=== PATIENT | male | born 1975 | race Two or more races ===

== ENCOUNTER 2022-06-29 09:41 | Outpatient (REF) | payer MEDICAID, OTHER, SELFPAY ==
--- NOTE | ~2022-06-29 | XR_ITS ---
EXAMINATION: XR KNEE, RIGHT CLINICAL INFORMATION: Right knee pain. COMPARISON: None TECHNIQUE: Four views of the right knee. FINDINGS: Mild medial compartment joint space narrowing. Tiny patellofemoral and medial compartment marginal osteophytes. No osseous erosion. Superior and inferior patellar enthesophytes. Small joint effusion. XR/XR knee RT 4V IMPRESSION: Mild medial and patellofemoral compartment osteoarthritis and small joint effusion.
== END 2022-06-29 09:42 | disposition home or self-care (01) ==
LOC: HO.XRAY 09:41
PROVIDERS: Visit Provider Internal Medicine
DX: M25.561 Pain in right knee (principal)
CPT/HCPCS: 73564

== ENCOUNTER 2024-05-07 10:25 | Outpatient (REF) | payer MEDICAID, OTHER, SELFPAY ==
[2024-05-07 14:46] LABS: MANUAL DIFF FLAG NO
[2024-05-07 14:57] LABS: Basophils Percent Auto 0.3 % (0-2); Eosinophils Absolute Auto 0.1 X10*3/uL (0.0-0.4); Eosinophils Percent Auto 1.3 % (0-4); Hematocrit 40.7 % (42.0-52.0); Hemoglobin 13.4 g/dl (14.0-18.0); Imm Gran Abs Auto 0.03 X10*3/uL (0.00-0.03); Imm Gran Pct Auto 0.3 % (0.0-0.4); Lymphocytes Percent Auto 31.1 % (20-40); Mean Corpuscular HGB Conc 32.9 g/dl (31.0-36.0); Mean Corpuscular Volume 91.3 fL (80.0-98.0); Mean Platelet Volume 9.6 fL (9.4-12.4); Monocytes Absolute Auto 0.8 X10*3/uL (0.1-1.2); Monocytes Percent Auto 7.8 % (2-11); Neutrophils Absolute Auto 5.7 x10*3/uL (2.0-8.3); Neutrophils Percent Auto 59.2 % (45-73); Platelet Count 337 X10*3/uL (160-400); Red Blood Count 4.46 X10*6/uL (4.60-5.80); Red Cell Distribution Width 12.6 % (11.0-16.0); White Blood Count 9.6 X10*3/uL (4.8-10.8)
[2024-05-07 15:03] LABS: Estimated Average Glucose 114 mg/dL; Hemoglobin A1c % 5.6 % (<6.0)
[2024-05-07 15:23] LABS: Alanine Aminotransferase 29 U/L (0-40); Albumin Level 4.4 g/dL (3.5-5.0); Alkaline Phosphatase 65 U/L (39-117); Anion Gap 11 (12-20); Aspartate Amino Transferase 23 U/L (5-37); Bilirubin Total 0.6 mg/dL (0.0-1.0); Blood Urea Nitrogen 20 mg/dL (9-16); Calcium 9.5 mg/dL (8.4-10.2); Carbon Dioxide 23 mmol/L (22-29); Chloride 108 mmol/L (96-108); Cholesterol 164 mg/dL (<200); Estimated Glomerular Filt Rate > 60; Glucose Random 96 mg/dL (60-115); HDL Cholesterol 35 mg/dL (>40); LDL Cholesterol Calculated 110 mg/dL (<100); Sodium 138 mmol/L (135-145); Total Protein 7.4 g/dL (6.5-8.0); Triglycerides 99 mg/dL (<150)
[2024-05-07 15:27] LABS: Prostate Specific Antigen 1.96 ng/mL (<0.05-4.0)
[2024-05-07 15:41] LABS: TSH reflex Free T4 2.09 uIU/mL (0.32-4.0)
== END 2024-05-07 10:26 | disposition home or self-care (01) ==
LOC: HO.CHCLDS 10:25
PROVIDERS: Visit Provider Registered Nurse
DX: Z00.00 Encounter for general adult medical examination without abnormal findings (principal)
CPT/HCPCS: 36415; 80053; 80061; 83036; 84153; 84443; 85025

== ENCOUNTER → 2024-07-10 09:01 | Outpatient (BNV) | payer SELFPAY | PROVIDERS: PCP Family Medicine; Visit Provider Radiology Diagnostic Radiology | DX: M54.2 Cervicalgia (principal) | CPT/HCPCS: 72141 ==

== ENCOUNTER 2024-07-10 09:02 | Outpatient (REF) | payer MEDICAID, OTHER, SELFPAY ==
--- NOTE | ~2024-07-10 | MR_ITS ---
EXAMINATION: MR CERVICAL SPINE WITHOUT CONTRAST CLINICAL INFORMATION: 49-year-old male, sudden onset neck pain, radiating to right arm with numbness, as well as swelling bilateral lower neck to top of shoulders . COMPARISON: No relevant priors. TECHNIQUE: Multiplanar multisequence MR imaging of the cervical spine was done prior to and without the administration IV gadolinium. Examination was performed on a 1.5 Olena Siemens unit, using standard sequences. Please note, due to [facility] contractual, systems, and staffing issues, an [facility] radiologist was not available for review and dictation of this case until 07/29/2024. FINDINGS: CORONAL ALIGNMENT: -Normal. SAGITTAL ALIGNMENT: -There is a normal lordosis. Minimal straightening in the upper cervical region. -No subluxations. CRANIOCERVICAL JUNCTION/C1-2 ARTICULATIONS: -Intact and normally aligned. -Mild degenerative arthrosis C1-2 articulation. VERTEBRAL BODIES/BONE MARROW: -No compression deformities. -No gross bone marrow edema, or abnormal infiltrating bone marrow edema. DISCS: -Mild loss of disc height and signal spanning C2-C7, most significant at C5-C6, where there is moderate loss. CERVICAL CORD: -Normal in caliber and signal throughout. -No definite impingement identified. PARAVERTEBRAL SOFT TISSUES: -Normal. Normal flow voids in the vertebral arteries. -Thyroid is obscured by a saturation band. -On the coronal nutrition director view, mildly prominent bilateral supraclavicular fat is present, likely explaining patient's perceived swelling . VISUALIZED INTRACRANIAL STRUCTURES: -No abnormalities seen. AXIAL DISC SPACE IMAGING: C2-C3: Minimal disc bulge. Normal facets. No significant central canal or neural foraminal narrowing. C3-C4: No significant disc pathology. Minimal bilateral uncinate spurring. Normal facets. No central canal or neural foraminal narrowing. C4-C5: Broad-based shallow disc bulge present, extending into both foraminal zones and contiguous with mild bilateral uncinate spurs. Mild hypertrophic facet changes bilaterally left greater than right. Findings contribute to mild central canal stenosis without cord impingement or contact, mild right neural foraminal stenosis and moderate left neural foraminal narrowing. C5-C6: There is a broad-based disc bulge present with a superimposed central disc protrusion. The bulge extends into both foraminal zones and is contiguous with mild to moderate bilateral uncinate spurring. Findings indents upon the ventral thecal sac, contact, and minimally flatten the far lateral aspects of the anterior cord. There is a thin sliver of CSF remaining posterior to the cord. No abnormal cord signal. There is mild to moderate left greater than right lateral recess narrowing, and severe bilateral neural foraminal narrowing. C6-C7: There is a diffuse shallow disc bulge present extending into both foraminal zones with a superimposed central disc protrusion with annular fissuring. Minimal uncinate spurring, and minimal facet spurring. The bulge and protrusion contacts and minimally flatten the ventral aspect of the cord, with no abnormal cord signal, and a thin sliver of CSF remaining posterior to the cord. Mild impingement of the lateral columns bilaterally is present. Moderate lateral recess narrowing left greater than right. Moderate right greater than left neural foraminal narrowing. C7-T1: No central canal or neural foraminal narrowing. Mild facet degeneration bilaterally. T1-T4: No focal disc protrusions, bulges, or central canal or neural foraminal narrowing. MR/MR cervical spine wo con IMPRESSION: 1. Mild to moderate cervical spondylosis, most significant at C5-6 and C6-7 as detailed above. 2. See the body of the report for details and additional ancillary findings. Electronically signed by: Ralf Mcdonnell MD 07/29/2024 10:54 AM EDT
== END 2024-07-10 09:03 | disposition home or self-care (01) ==
LOC: HO.MRI 09:02
PROVIDERS: PCP Family Medicine; Visit Provider Family Medicine
DX: M54.2 Cervicalgia (principal)
CPT/HCPCS: 72141

== ENCOUNTER 2025-07-09 09:48 | Outpatient (REF) | payer SELFPAY ==
--- OUTSIDE RECORDS SUMMARY | 2025-06-25 14:45 | XMS_ITS | Encounter Summary ---
Author Organization [employer] Address [address] [place] [address] [address] [address] Care Team Providers Care Bridal Consultant Name Role Phone Jeanine Ashley Primary Care Provider [phone] Reason for Referral * Consultation (Routine) - Authorized Specialty Diagnoses / Procedures Referred By Rohan caro Referred To Contact Gastroenterology Diagnoses Colon cancer screening Jeanine Ashley FNP [address], [place] Phone: tel: fax: [facility] [address] [facility] [address] [place] [address] Phone: tel: fax: Referral ID Status Reason Start Date Expiration Date Visits Requested Visits Authorized [id number] Authorized Specialty Services Required 06/25/2025 06/25/2026 1 1 * Consultation (Routine) - Closed Specialty Diagnoses / Procedures Referred By Rohan caro Referred To Contact Optometry Diagnoses Difficulty seeing Jeanine Ashley FNP [address] [place] [address] Phone: tel: fax: [facility] [address] [place] [address] Phone: tel: fax: Referral ID Status Reason Start Date Expiration Date V isits Requested Visits Authorized [id number] Closed Consult and Treat 06/25/2025 06/25/2026 1 1 * Hospital - Outpatient (Routine) - Authorized Specialty Diagnoses / Procedures Referred By Rohan caro Referred To Contact Diagnoses Snoring Witnessed episode of apnea Procedures Polysomnography Jeanine Ashley FNP [address] [place] [address] Phone: tel: fax: [address] Phone: tel: fax: Referral ID Status Reason Start Date Expiration Date V isits Requested Visits Authorized [id number] Authorized 06/25/2025 06/25/2026 1 1 Encounter Details Date Type Department Care Team ([facility] st Contact Info) Description 06/25/2025 2:45 PM EDT Office Visit [facility] [address] [place] [address] Jeanine Ashley FNP [address] [place] [address] Encounter for routine history and physical examination of adult (Primary Dx); Routine health maintenance; Snoring; Witnessed episode of apnea; Difficulty seeing; Colon cancer screening; Cervical spondylosis; Dietary counseling; Exercise counseling Social History Tobacco Use Types Packs/Day Years Used Date Smoking Tobacco: Never Passive Smoke Exposure: Never Smokeless Tobacco: Never Tobacco Cessation:Counseling Given: Not Answered Alcohol Use Standard Drinks/Week Comments Never 0 (1 standard drink = 0.6 oz pur e alcohol) Depression Answer Date Recorded Patient Health Questionnaire-9 Score 3 07/01/2025 Patient Health Questionnaire-9 Score 3 07/01/2025 Last PHQ-9: Questionnaire Data Not on file 0 07/01/2025 Housing Stability Answer Date Recorded What is your housing situation today? I have nicholas murcia 06/25/[address] you li ve. Do you have problems with any of the following? None of the above 06/25/2025 Food Insecurity Answer Date Recorded Within the past 12 months, y ou worried that your food would run out before you got money to buy more: Never True 06/25/2025 Within the past 12 months,th e food you bought just didn't last and you didn't have enough money to get more: Never True Transportation Answer Date Recorded In the past 12 months, has l ack of transportation kept you from medical appts, meetings, work or from getting things needed for daily living? No 06/25/2025 Utilities Answer Date Recorded In the past 12 months, has t he electric, gas, oil or water company threatened to shut off services in your home? No 06/25/2025 Depression Answer Date Recorded Patient Health Questionnaire-2 Score 0 07/01/2025 Internet Access Answer Date Recorded Internet Access Q1 Yes 06/25/2025 Internet Access Q2 Not on file 06/25/2025 Sex and Gender Information Value Date Recorded Sex Assigned at Male 08/27/2022 10:40 AM EDT Legal Sex Male 10:40 AM EDT Gender Identity Male 08/27/2022 10:40 AM EDT Sexual Orientation Straight 06/29/2025 4: 19 PM EDT documented as of this encounter Last Filed Vital Signs Vital Sign Reading Time Taken Comments Blood Pressure 110/66 06/25/2025 2:46 PM EDT Pulse 80 06/25/2025 2:46 PM EDT Temperature 36.6 C (97.8 F) 06/25/2025 2:46 PM EDT Respiratory Rate 16 06/25/2025 2:46 PM EDT Oxygen Saturation - - Inhaled Oxygen Concentration - - Weight 75.3 kg (166 lb) 06/25/2025 2:46 PM EDT Height 157.5 cm (5' 2 ) 06/25/2025 2:46 PM EDT Body Mass Index 30.36 06/25/2025 2:46 PM EDT documented in this encounter Functional Status * Over the past 2 weeks, how often have you been bothered by any of the following problems? Question Answer Date of Assessment Author Patient Health Questionnaire -2 Score 0 07/01/2025 11:11 AM EDT Jeanine Ashley FNP * Little interest or pleasure in doing things Answer Date of Assessment Author Not at all 07/01/2025 11:11 AM EDT Jeanine Ashley FNP * Feeling down, depressed, or hopeless Answer Date of Assessment Author Not at all 07/01/2025 11:11 AM Jeanine Ramirez FNP * Trouble falling or staying asleep, or sleeping too much Answer Date of Assessment Author Not at all 07/01/2025 11:11 AM Jeanine Ramirez FNP * Feeling tired or having little energy Answer Date of Assessment Author Nearly every day 07/01/2025 11:11 AM Jeanine Ramirez FNP * Poor appetite or overeating Answer Date of Assessment Author Not at all 07/01/2025 11:11 AM Jeanine Ramirez FNP * Feeling bad about yourself - or that you are a failure or have let yourself or your family down Answer Date of Assessment Author Not at all 07/01/2025 11:11 AM Jeanine Ramirez FNP * Trouble concentrating on things, such as reading the newspaper or watching television Answer Date of Assessment Author Not at all 07/01/2025 11:11 AM Jeanine Ramirez FNP * Moving or speaking so slowly that other people could have noticed? Or the opposite - being so fidgety or restless that you have been moving around a lot more than usual. Answer Date of Assessment Author Not at all 07/01/2025 11:11 AM Jeanine Ramirez FNP * Thoughts that you would be better off or hurting yourself in some way Answer Date of Assessment Author Not at all 07/01/2025 11:11 AM Jeanine Ramirez FNP * Patient Health Questionnaire-9 Score Answer Date of Assessment Author 3 07/01/2025 11:11 AM Jeanine Ramirez FNP * How difficult have these problems made it for you to do your work, take care of things at home, or get along with other people? Answer Date of Assessment Author Not difficult at all 07/01/2025 11:11 AM Jeanine Casas FNP * Over the last 2 weeks, how often have you been bothered by any of the following problems? Question Answer Date of Assessment Author Feeling nervous, anxious, or on edge 1 07/01/2025 11:12 AM EDT Phalen, Jeanine, POSTAL SERVICE CLERK Not being able to stop or co ntrol worrying 0 07/01/2025 11:12 AM EDT Jeanine Ashley FNP Worrying too much about diff erent things 0 07/01/2025 11:12 AM EDT Jeanine Ashley FNP Trouble relaxing 1 07/01/2025 11:12 AM EDT Jeanine Ashley FNP Being so restless that it is hard to sit still 0 07/01/2025 11:12 AM EDT Jeanine Ashley FNP Becoming easily annoyed or irritable 1 07/01/2025 11:12 AM EDT Jeanine Ashley FNP Feeling afraid as if somethi ng awful might happen 0 07/01/2025 11:12 AM EDT Jeanine Ashley FNP SIENA-7 Total Score 3 07/01/2025 11:12 AM EDT Jeanine Ashley FNP documented as of this encounter Progress Notes * RYAN Cook - 06/25/2025 2:45 PM EDT Subjective: Luis Gurrola is a 50 y.o. male who presents to the office for a Physical Exam. [employer] [facility] Administrative Assistant utilized during Interim History: - Last PCP visit: 05/01/24 - MR Cervical Spine completed on 07/09/24 and it demonstrated mild to moderate cervical spondylosis,most significant at C5-6 and C6-7 as described. Reviewed findings in depth with pt today. Current concerns: Snoring: reports snoring throughout the night with episodes where he stops breathing witnessed bywife. Reports able to fall asleep as soon as head hits the pillow. (+) daytime drowsiness. Waking up to urinate 2-3 times per night, which he reports is normal for him. Difficulty with near vision. Referral to [facility] placed for further eval. List of local visioncenters provided as well. Social history: Living - living with , have been for > 30 years Employment - tour driver, working multimedia designer Substance Use - Pt denies use of tobacco, alcohol, marijuana, opioids, or other substances Mental health - reports doing well overall, denies SI/HI/thoughts of self harm Allergies Allergen Reactions Penicillin G Other reaction(s): Blister, Edema Review of Systems Constitutional: Negative for chills and fever. Respiratory: Negative for cough, shortness of breath and wheezing. Cardiovascular: Negative for chest pain, palpitations and leg swelling. Gastrointestinal: Negative for nausea and vomiting. Musculoskeletal: Negative for neck stiffness. Neurological: Negative for dizziness, syncope, facial asymmetry and speech difficulty. Psychiatric/Behavioral: Positive for sleep disturbance. Negative for suicidal ideas. Visit Vitals BP 110/66 (BP Location: Right arm, Patient Position: Sitting, BP Cuff Size: Adult) Pulse 80 Temp 97.8 ??F (36.6 ??C) (Temporal) Resp 16 Ht 5' 2 (1.575 m) Wt 166 lb (75.3 kg) BMI 30.36 kg/m?? Smoking Status Never BSA 1.82 m?? Physical Exam Vitals reviewed. Constitutional: General: He is not in acute distress. Appearance: Normal appearance. HENT: Head: Atraumatic. Right Ear: Tympanic membrane, ear canal and external ear normal. Left Ear: Tympanic membrane, ear canal and external ear normal. Nose: Nose normal. Mouth/Throat: Mouth: Mucous membranes are moist. Pharynx: No oropharyngeal exudate or posterior oropharyngeal erythema. Eyes: General: Right eye: No discharge. Left eye: No discharge. Pupils: Pupils are equal, round, and reactive to light. Cardiovascular: Rate and Rhythm: Normal rate and regular rhythm. Pulmonary: Effort: Pulmonary effort is normal. No respiratory distress. Breath sounds: Normal breath sounds. No stridor. Musculoskeletal: General: Normal range of motion. Cervical back: No tenderness. Skin: General: Skin is warm. Neurological: Mental Status: He is alert and oriented to person, place, and time. Psychiatric: Mood and Affect: Mood normal. Behavior: Behavior normal. Problem List Items Addressed This Visit Health Encounters Routine health maintenance Overview Colon CA: referred for colonoscopy 08/07/22. Referral re-sent on 06/25/25 PSA: WNL Jul 2022 Optometry: referred to vision center 08/07/22, re-referred on 06/25/25 Dental: plans to establish with clinic in [facility] Last Physical: 06/25/25 Tdap: reports last vaccine in 2018 Current Assessment & Plan Declined outstanding vaccines including PCV20 and Zoster. Encouraged to f/up if interested in future. Relevant Orders Lipid Panel, Standard Hemoglobin A1c TSH with Reflex to Free T4 Comprehensive Metabolic Panel CBC auto differential Chlamydia/N. Gonorrhoeae RNA, TMA, Urogenitial Hepatitis C Viral RNA, Quantitative, Real-Time PCR RPR (Monitor) with Reflex to Titer HIV-1/2 Antigen and Antibodies, Fourth Generation, with Reflexes Vitamin D, 25-Hydroxy, Total, Immunoassay PSA,Total Neuro Cervical spondylosis Overview MR Cervical Spine completed on 07/09/24 and it demonstrated mild to moderate cervical spondylosis, most significant at C5-6 and C6-7 as described. Current Assessment & Plan - No red flag symptoms, continues with symptomatic management Pulmonary and Pneumonias Witnessed episode of apnea Current Assessment & Plan (+) snoring, (+) witnessed episode of apnea by , (+) daytime drowsiness Referred for sleep study on 06/25/25 Relevant Orders Polysomnography Other Visit Diagnoses Encounter for routine history and physical examination of adult - Primary -Cardiopulmonary exam WNL -Encouraged healthy lifestyle habits including routine physical exercise and diet rich in fruits and vegetables Snoring Relevant Orders Polysomnography Difficulty seeing Relevant Orders Referral to [facility] Colon cancer screening Relevant Orders Referral to Gastroenterology Follow up: 6 months, sooner PRN Current Medications[1] Immunization History Administered Date(s) Administered Influenza injectable quadrivalent preservative free 08/07/2022 [1] Current Outpatient Medications Medication Sig Dispense Refill acetaminophen (Tylenol 8 Hour) 650 MG ER tablet Tale 1 TABLET BY MOUTH EVERY 8 HOURS NEEDED. SWALLOW WHOLE WITH WATER DO NOT BREAK, CRUSH, DISSOLVE OR CHEW 100 tablet 1 cyclobenzaprine (Flexeril) 10 MG tablet Take 1 tablet (10 mg) by mouth 3 times daily for 10 days. 30 tablet 0 diclofenac (Cataflam) 50 MG tablet Take 1 tablet (50 mg) by mouth 3 times daily. 90 tablet 0 Diclofenac Sodium 1 % gel APPLY TO THE AFFECTED AREA(S) 2 GRAMS TWICE DAILY ibuprofen 600 MG tablet Take 1 tablet (600 mg) by mouth every 8 (eight) hours if needed (pain and fever). 100 tablet 1 ibuprofen 800 MG tablet TAKE 1 TABLET BY MOUTH THREE TIMES DAILY WITH FOOD lidocaine (Lidoderm) 5 % patch Apply 1 patch topically in the morning. Remove & discard patch within 12 hours or as directed by MD. 30 patch 3 meloxicam (Mobic) 15 MG tablet Take 15 mg by mouth in the morning. No current facility-administered medications for this visit. documented in this encounter Miscellaneous Notes * Assessment & Plan Note - YRAN Cook - 07/01/2025 11:08 AM EDT Associated Problem(s): Witnessed episode of apnea (+) snoring, (+) witnessed episode of apnea by , (+) daytime drowsiness Referred for sleep study on 06/25/25 * Assessment & Plan Note - RYAN Cook - 07/01/2025 11:04 AM EDT Associated Problem(s): Cervical spondylosis - No red flag symptoms, continues with symptomatic management * Assessment & Plan Note - RYAN Cook - 07/01/2025 11:01 AM EDT Associated Problem(s): Routine health maintenance Declined outstanding vaccines including PCV20 and Zoster. Encouraged to f/up if interested in future. * Addendum Note - RYAN Cook - 06/25/2025 2:45 PM EDTAddended by: JEANINE ASHLEY on: 07/09/2025 10:04 AM Modules accepted: Orders documented in this encounter Plan of Treatment Scheduled Orders Name Type Priority Associated Diagnoses Orde r Schedule Polysomnography Sleep Center Routine Snoring Witnessed episode of apnea Expected: 06/25/2025 (Approximate), Expires: 06/25/2026 Lipid Panel, Standard Lab Routine Routine health maintenance Expected: 06/25/2025 (Approximate), Expires: 06/25/2026 Hemoglobin A1c Lab Routine Routine health maintenance Expected: 06/25/2025 (Approximate), Expires: 06/25/2026 TSH with Reflex to Free T4 Lab Routine Routine health maintenance Expected: 06/25/2025 (Approximate), Expires: 06/25/2026 Comprehensive Metabolic Panel Lab Routine Routine health maintenance Expected: 06/25/2025 (Approximate), Expires: 06/25/2026 CBC auto differential Lab Routine Routine health maintenance Expected: 06/25/2025, Expires: 06/25/2026 Hepatitis C Viral RNA, Quantitative, Real-Time PCR Lab Routine Routine health maintenance Expected: 06/25/2025 (Approximate), Expires: 06/25/2026 RPR (Monitor) with Reflex to Titer Lab Routine Routine health maintenance Expected: 06/25/2025 (Approximate), Expires: 06/25/2026 HIV-1/2 Antigen and Antibodies, Fourth Generation, with Reflexes Lab Routine Routine health maintenance Expected: 06/25/2025 (Approximate), Expires: 06/25/2026 Vitamin D, 25-Hydroxy, Total, Immunoassay Lab Routine Routine health maintenance Expected: 06/25/2025 (Approximate), Expires: 06/25/2026 PSA,Total Lab Routine Routine health maintenance Expected: 06/25/2025, Expires: 06/25/2026 Chlamydia/N. Gonorrhoeae RNA, TMA, Urogenitial Microbiology Routine Encounter for routine history and physical examination of adult Ordered: 07/09/2025 Chlamydia/N. Gonorrhoeae, PCR, Urine Lab Routine Encounter for routine history and physical examination of adult Ordered: 07/09/2025 Scheduled Referrals Name Type Priority Associated Diagnoses Order Schedule Referral to [facility] Outpatient Referral Routine Difficulty seeing Expected: 06/25/2025 (Approximate), Expires: 06/25/2026 Referral to Gastroenterology Outpatient Referral Routine Colon cancer screening Expected: 06/25/2025 (Approximate), Expires: 06/25/2026 documented as of this encounter Visit Diagnoses Diagnosis Encounter for routine history and physical examination of adult- Primary Routine health maintenance Unspecified examination Snoring Other dyspnea and respiratory abnormality Witnessed episode of apnea Difficulty seeing Other ill-defined disorder of eye Colon cancer screening Special screening for malignant neoplasms, colon Cervical spondylosis Cervical spondylosis without myelopathy Dietary counseling Dietary surveillance and counseling Exercise counseling documented in this encounter Additional Health Concerns Assessment Noted Time PHQ-9 Depression Total Score: 3 07/01/20 25 11:11 AM EDT documented as of this encounter Care Teams Bridal Consultant Relationship Specialty Start Date End Date Jeanine Ashley FNP [address] [place] [address] PCP - General Family Medicine 08/07/22 documented as of this encounter
--- OUTSIDE RECORDS SUMMARY | 2025-07-09 11:00 | XMS_ITS | Encounter Summary ---
Author Organization [employer] Address [address] [facility] [address] [place] [address] Care Team Providers Care Pharmacy Billing Adjudicator Name Role Phone Jeanine Srinivasan STORAGE MANAGEMENT CONSULTANT Primary Care Provider [phone] Encounter Details Date Type Department Care Team (Late st Contact Info) Description 05/15/2024 Orders Only [facility] [address] [place] [address] Jeanine Srinivasan FNP [address] [place] [address] Anemia, unspecified type (Primary Dx) Social History Tobacco Use Types Packs/Day Years Used Date Smoking Tobacco: Never Smokeless Tobacco: Never Alcohol Use Standard Drinks/Week Comments Never 0 (1 standard drink = 0.6 oz pur e alcohol) Depression Answer Date Recorded Patient Health Questionnaire-9 Score 0 05/01/2024 Patient Health Questionnaire-9 Score 0 05/01/2024 Last PHQ-9: Questionnaire Data Not on file 0 05/01/2024 Housing Stability Answer Date Recorded What is your housing situation today? I have nicholas murcia 05/01/[address] you li ve. Do you have problems with any of the following? None of the above 05/01/2024 Food Insecurity Answer Date Recorded Within the past 12 months, y ou worried that your food would run out before you got money to buy more: Never True 05/01/2024 Within the past 12 months,th e food you bought just didn't last and you didn't have enough money to get more: Never True 02/2024 Transportation Answer Date Recorded In the past 12 months, has l ack of transportation kept you from medical appts, meetings, work or from getting things needed for daily living? No 05/01/2024 Utilities Answer Date Recorded In the past 12 months, has t he electric, gas, oil or water company threatened to shut off services in your home? No 05/01/2024 Depression Answer Date Recorded Patient Health Questionnaire-2 Score 0 05/01/2024 Sex and Gender Information Value Date Recorded Sex Assigned at Male 08/27/2022 10:40 AM EDT Legal Sex Male 10:40 AM EDT Gender Identity Male 08/27/2022 10:40 AM EDT Sexual Orientation Straight 06/29/2025 4: 19 PM EDT documented as of this encounter Plan of Treatment Scheduled Orders Name Type Priority Associated Diagnoses Orde r Schedule CBC auto differential Lab Routine Anemia, unspecified type Expected: 05/15/2024 (Approximate), Expires: 05/15/2025 Reticulocyte Count Lab Routine Anemia, unspecified type Expected: 05/15/2024, Expires: 05/15/2025 documented as of this encounter Visit Diagnoses Diagnosis Anemia, unspecified type- Primary documented in this encounter Additional Health Concerns Assessment Noted Time PHQ-9 Depression Total Score: 0 05/01/20 24 3:18 PM EDT documented as of this encounter Care Teams Pharmacy Billing Adjudicator Relationship Specialty Start Date End Date Jeanine Srinivasan FNP [address] [place] [id number] PCP - General Family Medicine 08/07/22 documented as of this encounter
--- OUTSIDE RECORDS SUMMARY | 2025-07-09 11:00 | XMS_ITS | Clinical Summary ---
Author Organization [employer] Address [address] [facility] [address] [place] [address] Care Team Providers Care Distance Education Director Name Role Phone Jeanine Srinivasan RYAN Primary Care Provider [phone] Allergies Active Allergy Reactions Criticality Noted Date Comments Penicillin G High 08/07/2022 Other reaction(s): Blister, Edema Medications lidocaine (Lidoderm) 5 % patchIndicatio ns:Low back pain at multiple sites Apply 1 patch topically in the morning. Remove & discard patch within 12 hours or as directed by MD. 30 patch 3 12/06/19 23 Active Diclofenac Sodium 1 % gel APPLY TO THE AFFECTED AREA(S) 2 GRAMS TWICE DAILY 06/28/20 22 Active ibuprofen 800 MG tablet TAKE 1 TABLET BY MOUTH THREE TIMES DAILY WITH FOOD 08/07/20 22 Active meloxicam (Mobic) 15 MG tablet Take 15 mg by mouth in the morning. 07/04/20 22 Active cyclobenzaprin e (Flexeril) 10 MG tablet Take 1 tablet (10 mg) by mouth 3 times daily for 10 days. 30 tablet 04/20/20 24 Active diclofenac (Cataflam) 50 MG tablet Take 1 tablet (50 mg) by mouth 3 times daily. 90 tablet 04/20/20 24 Active ibuprofen 600 MG tablet Take 1 tablet (600 mg) by mouth every 8 (eight) hours if needed (pain and fever). 100 tablet 1 06/25/20 25 025 Active acetaminophen (Tylenol 8 Hour) 650 MG ER tablet Tale 1 TABLET BY MOUTH EVERY 8 HOURS NEEDED. SWALLOW WHOLE WITH WATER DO NOT BREAK, CRUSH, DISSOLVE OR CHEW 100 tablet 1 06/25/20 25 Active acetaminophen (Tylenol 8 Hour) 650 MG ER tablet TAKE 1 TABLET BY MOUTH EVERY 8 HOURS NEEDED. SWALLOW WHOLE WITH WATER DO NOT BREAK, CRUSH, DISSOLVE OR CHEW 08/07/20 025 Discontinued(Re order (will not trigger notification to Pharmacy)) Active Problems Problem Noted Date Diagnosed Date Cervical spondylosis 07/01/2025 Overview (07/01/2025): MR Cervical Spine completed on 07/09/24 and it demonstrated mild to moderate cervical spondylosis, most significant at C5-6 and C6-7 as described. Assessment & Plan (07/01/2025 11:04 AM EDT): - No red flag symptoms, continues with symptomatic management Witnessed episode of apnea 07/01/2025 Assessment & Plan (07/01/2025 11:08 AM EDT): (+) snoring, (+) witnessed episode of apnea by , (+) daytime drowsiness Referred for sleep study on 06/25/25 Pterygium of both eyes 12/06/2022 Overview (12/06/2022): -Not impacting vision, asymptomatic -Discussed generally benign nature of growth -Encouraged to follow up with any difficulties/blurring in vision, or eye discomfort Routine health maintenance 12/06/2022 Overview (07/01/2025): Colon CA: referred for colonoscopy 08/07/22. Referral re-sent on 06/25/25 PSA: WNL Jul 2022 Optometry: referred to vision center 08/07/22, re-referred on 06/25/25 Dental: plans to establish with clinic in [facility] Last Physical: 06/25/25 Tdap: reports last vaccine in 2018 Assessment & Plan (07/01/2025 11:02 AM EDT): Declined outstanding vaccines including PCV20 and Zoster. Encouraged to f/up if interested in future. Assessment & Plan (05/03/2024 6:55 PM EDT): Due for routine labs, ordered today Hemorrhoids 08/08/2022 Overview (12/06/2022): -asymptomatic, referred to GI along with screening colonoscopy 08/07/2022 Osteoarthritis of right knee 08/08/2022 Overview (12/06/2022): Following with [facility]. Currently well controlled with ibuprofen, APAP, voltaren, and knee brace. able to work w/o impairment. Per consult note, discussed possible future tx option with cortisone injection if pain becomes severe. Assessment & Plan (12/06/2022 8:40 PM EST): Included in PT referral Resolved Problems Problem Noted Date Diagnosed Date Resolved Date Neck pain 04/20/2024 07/01/2025 Assessment & Plan (05/03/2024 6:55 PM EDT): MRI cervical pending Symptomatic management Follow up precautions Assessment & Plan (04/20/2024 11:11 AM EDT): Ordering MRI of Cervical Spine for further evaluation. Prescribing Flexeril and Cataflam for symptoms. F/u with PCP on 05/01/2024. Relevant Medications Cyclobenzaprine (Flexeril) 10 MG Tablet Diclofenac (Cataflam) 50 MG Tablet Encounters Date Type Department Care Team Description 06/25/2025 2:45 PM EDT Office Visit [facility] [address] [place] [address] Jeanine Srinivasan FNP Encounter for routine history and physical examination of adult (Primary Dx); Routine health maintenance; Snoring; Witnessed episode of apnea; Difficulty seeing; Colon cancer screening; Cervical spondylosis; Dietary counseling; Exercise counseling 06/25/2025 Travel 06/18/2025 Patient Outreach [facility] [address] [place], [place] [phone] Jeanine Srinivasan FNP Pre-visit Planning (Pre visit planning LVM ) from Last 3 Months Immunizations Immunization Administration Dates Next Due Influenza injectable quadrivalent preservative f ree 08/07/2022 Family History Medical History Relation Name Comments Sleep disorder Father Alzheimer's disease Maternal Grandmother Prostate cancer Paternal Grandfather Relation Name Status Comments Father Maternal Grandmother Paternal Grandfather Social History Tobacco Use Types Packs/Day Years [...] Orientation Straight 06/29/2025 4: 19 PM EDT Last Filed Vital Signs Vital Sign Reading Time Taken Comments Blood Pressure 110/66 06/25/2025 2:46 PM EDT Pulse 80 06/25/2025 2:46 PM EDT Temperature 36.6 C (97.8 F) 06/25/2025 2:46 PM EDT Respiratory Rate 16 06/25/2025 2:46 PM EDT Oxygen Saturation 98% 05/01/2024 3:13 PM EDT Inhaled Oxygen Concentration - - Weight 75.3 kg (166 lb) 06/25/2025 2:46 PM EDT Height 157.5 cm (5' 2 ) 06/25/2025 2:46 PM EDT Body Mass Index 30.36 06/25/2025 2:46 PM EDT Plan of Treatment Health Maintenance Due Date Last Done Comments CT Colonography 1973 Colonoscopy 1973 Colorectal Cancer Screening 1973 FIT DNA/Cologuard 1973 FIT 1973 FOBT 1973 Sigmoidoscopy 1973 Alcohol/Substance Use Screening 1985 Family Planning (PISQ) 1988 COVID-19 Vaccine (1 - 2023-2 5 season) 2025 Influenza Vaccine (#1) 2025 08/07/2022 SDOH Screening 06/25/2026 06/25/2025 Tobacco Screening 06/25/2026 06/25/2025 DTaP/Tdap/Td Vaccines (1 - Tdap) 07/01/2026 Postponed from 04/30 (Patient Refused) Depression Screening 07/01/2026 07/01/2025, 07/01/2025 Disability Screening 07/01/2026 07/01/2025 Hepatitis B Vaccines (1 of 3 - 19+ 3-dose series) 07/01/2026 Postponed from 01/1992 (Patient Refused) Pneumococcal Vaccine: 50+ Years (1 of 1 - PCV) 07/01/2026 Postponed from 01/2023 (Patient Refused) Zoster Vaccines (1 of 2) 07/01/2026 Pos tponed from 2023 (Patient Refused) Lipid Panel 05/07/2029 05/07/2024, 08/09/2022 RSV Patients and Patients Aged 60 years or older (1 - 1-dose 75+ series) 2048 HIV Screening Completed 08/09/2022 Hepatitis C Screening Completed 08/09/2022 HIB Vaccines Aged Out No longer eligi ble based on patient's age to complete this topic HPV Vaccines Aged Out No longer eligi ble based on patient's age to complete this topic Hepatitis A Vaccines Aged Out No long er eligible based on patient's age to complete this topic IPV Vaccines Aged Out No longer eligi ble based on patient's age to complete this topic Meningococcal B Vaccine Aged Out No l onger eligible based on patient's age to complete this topic Meningococcal Vaccine Aged Out No donovan jesenia eligible based on patient's age to complete this topic RSV under 20 months Aged Out No longe r eligible based on patient's age to complete this topic Rotavirus Vaccines Aged Out No longer eligible based on patient's age to complete this topic Procedures Procedure Name Priority Date/Time Associated Diagnosis Comments LIPID PANEL, STANDARD Routine 05/07/2024 10:26 AM EDT Routine health maintenance ZZZ HISTORICAL HEPATITIS C AB W/REFL TO HCV RNA, QN, PCR Routine 08/09/2022 9:05 AM EDT HIV 1/2 ANTIGEN/ANTIBODY, FOURTH GENERATION W/RFL Routine 08/09/2022 9:05 AM EDT from Last 3 Months or Most Recently Relevant to Health Maintenance Results * (ABNORMAL) Lipid Panel, Standard (05/07/2024 10:26 AM EDT) Triglycerides 99 <150 mg/dL [facility] Comment:Desirable Triglyceri de: less than 150 mg/dLBorderline High Triglyceride 150-199 mg/dLHigh Triglyceride: 200-499 mg/dLVery High Triglyceride: greater than or equal to 5OO mg/dL Cholesterol 164 <200 mg/dL [facility] Comment:Desirable Cholestero l: less than 200 mg/dLBorderline High Cholesterol: 200-239 mg/dLHigh Cholesterol: greater than 239 mg/dL LDL Cholesterol Calculated 110(H) <100 mg/dL [facility] Comment:Desirable LDL: less than 100 mg/dLNear Optimal/Above Optimal LDL: 110- 129 mg/dLBorderline High LDL: 130-159 mg/dLHigh LDL: 160-189 mg/dLVery High LDL: greater than or equal to 190 mg/dL HDL Cholesterol 35(L) >40 mg/dL [facility] Comment:Desirable HDL: great er than 40 mg/dL Note: This HDL assay may give artificially low results in patients with liver disease. Blood Venous blood specimen / Unknown 05/07/2024 10:26 AM EDT 05/07/2024 2:40 PM EDT us Jeanine Srinivasan [facility] BLOOD ORDERABLES Final Res ult Performing Organization Address [facility] Co de Phone Number [facility] [address] [place] [address] [phone] * HEPATITIS C AB W/REFL TO HCV RNA, QN, PCR (08/09/2022 9:05 AM EDT) HEPATITIS C ANTIBODY NON-REACTI VE NON-REACT ARCHIE CONVERTED [facility]GACY LABS INDEX 0.04 <1.00 CONVERT[facility]GACY LABS Comment: HCV antibody was non-reactive. There is no laboratory evidence of HCV infection. In most cases, no further action is required. However, if recent HCV exposure is suspected, a test for HCV RNA (test code 80319) is suggested. For additional information please refer to http://education.[employer]ip[employer]/faq/RDQ24v6 (This link is being provided for informational/ educational purposes only.) 08/09/2022 9:05 AM EDT us Jeanine DANIELP HISTORICAL/NON ORDERABLE LABS Final Result Performing Organization Address [facility] Co de Phone Number CONVERTED LEGACY LABS * HIV 1/2 ANTIGEN/ANTIBODY,FOURTH GENERATION W/RFL (08/09/2022 9:05 AM EDT) HIV-1/2 ANTIGEN AND ANTIBODIES, 4TH GENERATION W/ REFLEX NON-REACT ARCHIE NON-REACT ARCHIE CONVERTED [facility]GACY LABS Comment: HIV-1 antigen and HIV-1/HIV-2 antibodies were not detected. There is no laboratory evidence of HIV infection. PLEASE NOTE: This information has been disclosed to you from records whose confidentiality may be protected by state law. If your state requires such protection, then the state law prohibits you from making any further disclosure of the information without the specific written consent of the person to whom it pertains, or as otherwise permitted by law. A general authorization for the release of medical or other information is NOT sufficient for this purpose. For additional information please refer to http://education.[employer]/faq/WOS984 (This link is being provided for informational/ educational purposes only.) The performance of this assay has not been clinically validated in patients less than 2 years old. 08/09/2022 9:05 AM EDT Jeanine Srinivasan GRAIN LOADER LAB BLOOD ORDERABLES Final Res ult CONVERTED LEGACY LABS from Last 3 Months or Most Recently Relevant to Health Maintenance Insurance [facility] FULL Care Teams Distance Education Director Relationship Specialty Start Date End Date Jeanine Srinivasan FNP [address] [place] [phone] PCP - General Family Medicine 08/07/22
[2025-07-09 14:24] LABS: MANUAL DIFF FLAG NO
[2025-07-09 14:33] LABS: Hematocrit 41.5 % (42.0-52.0); Hemoglobin 13.6 g/dl (14.0-18.0); Imm Gran Abs Auto 0.01 X10*3/uL (0.00-0.03); Imm Gran Pct Auto 0.1 % (0.0-0.4); Lymphocytes Absolute Auto 2.9 X10*3/uL (1.2-4.9); Mean Corpuscular HGB Conc 32.8 g/dl (31.0-36.0); Mean Corpuscular Hemoglobin 29.8 pg (27.0-33.0); Mean Corpuscular Volume 91.0 fL (80.0-98.0); NRBC Abs Auto 0.000 X10*3/uL (0.0-0.012); NRBC Pct Auto 0.0 /100WBC (0.0-0.2); Platelet Count 303 X10*3/uL (160-400); Red Blood Count 4.56 X10*6/uL (4.60-5.80); White Blood Count 8.8 X10*3/uL (4.8-10.8)
[2025-07-09 14:46] LABS: Hemoglobin A1C 145.0985 umol/L; Total Hemoglobin (HGBA1C) 3616.8152 umol/L
[2025-07-09 15:10] LABS: Alanine Aminotransferase 33 U/L (0-40); Albumin Level 4.8 g/dL (3.5-5.0); Alkaline Phosphatase 69 U/L (39-117); Anion Gap 12 (12-20); Aspartate Amino Transferase 38 U/L (5-37); Blood Urea Nitrogen 21 mg/dL (9-16); Calcium 9.2 mg/dL (8.4-10.2); Carbon Dioxide 25 mmol/L (22-29); Chloride 107 mmol/L (96-108); Cholesterol 184 mg/dL (<200); Estimated Glomerular Filt Rate > 60; HDL Cholesterol 44 mg/dL (>40); Potassium 4.1 mmol/L (3.3-5.1); Sodium 140 mmol/L (135-145); Total Protein 7.8 g/dL (6.5-8.0); Triglycerides 109 mg/dL (<150)
[2025-07-09 15:26] LABS: Prostate Specific Antigen 2.36 ng/mL (<0.05-4.0)
[2025-07-09 15:56] LABS: CT PCR Urine NOT DETECTED (Not Detect.); NG PCR Urine NOT DETECTED (Not Detect.)
[2025-07-10 08:39] LABS: HIV Num 1 0.22 S/CO (0.00-0.99)
[2025-07-11 15:23] LABS: HCV Log PCR <1.18 NOT DETECTED Log IU/mL (NOT DETECTED); HepC Viral Load <15 NOT DETECTED IU/mL (NOT DETECTED)
== END 2025-07-09 09:49 | disposition home or self-care (01) ==
LOC: HO.CHCLDS 09:48
PROVIDERS: Visit Provider Registered Nurse
DX: Z00.00 Encounter for general adult medical examination without abnormal findings (principal); Z12.5 Encounter for screening for malignant neoplasm of prostate; Z13.6 Encounter for screening for cardiovascular disorders; Z13.1 Encounter for screening for diabetes mellitus; Z11.59 Encounter for screening for other viral diseases
CPT/HCPCS: 36415; 80053; 80061; 82306; 83036; 84153; 84443; 85025; 86592; 87389; 87491; 87522; 87591